=== PATIENT | male | born 1990 | race Caucasian/White ===

== ENCOUNTER 2017-08-24 08:44 | Inpatient (IN) | payer OTHER ==
[~2017-08-24] VITALS: Ht 190.5 cm; Wt 151.4 kg
[~2017-08-24 08:44] MED LIST: ASPIRIN E.C. 8181 MG PO; LEVAQUIN 5500 MG/TA1 PO; MAG-OX 400400 MG/TAB PO; MAGIC MOUTH PO; MOTRIN 200200 MG/TAB PO; NORCO 325 MG-51 TAB PO; SENNA8.6 MG PO; TOPROL XL 50MG50 MG PO; TYLENOL 500MG500 MG PO
[2017-10-13] VITALS (10 sets, daily range): BP systolic 126–147; BP diastolic 65–94; PULSE 78–99; TEMP 98.4
[2017-10-13] MEDS ORDERED: FIBER GUMMIES2.5 GM PO (10:53)
[2017-10-13] MEDS ORDERED: MULTI VITAMINS1 TAB PO (10:53)
[2017-10-13 11:14] LABS: BASO % 0.4 % (0.0-2.0); EOS # 0.1 (0.0-0.7); EOS % 1.7 % (0-4.0); GRAN # 5.2 (1.4-6.5); GRAN % 68.6 % (42.2-75.2); HEMATOCRIT 43.3 % (42.0-52.0); HEMOGLOBIN 14.3 g/dl (13.5-18.0); LYMPH # 1.5 (1.2-3.4); MEAN CELL VOLUME 90 fl (80.0-100.0); MEAN CORPUSCULAR HEMOGLOBIN 30 pg (27.0-31.0); MEAN CORPUSCULAR HGB CONC 33 g/dl (33.0-37.0); MEAN PLATELET VOLUME 9.9 fl (7.4-10.4); MONO # 0.7 (0.1-0.6); PLATELET COUNT 239 K/mm3 (130-400); RED BLOOD COUNT 4.81 M/mm3 (4.20-5.60); REDCELL DISTRIBUTION WIDTH-CV 14.2 % (11.5-14.5)
[2017-10-13 11:23] LABS: ALBUMIN 4.6 gm/dL (3.5-5.0); CALCIUM 9.8 mg/dL (8.4-10.2); CREATININE, serum 1.06 mg/dL (0.66-1.25); POTASSIUM 4.1 mmol/L (3.4-5.0); TOTAL PROTEIN 7.9 gm/dL (6.4-8.2)
[2017-10-13 18:27] LABS: HEMATOCRIT 44.1 % (42.0-52.0); HEMOGLOBIN 14.2 g/dl (13.5-18.0)
[2017-10-13 18:36] LABS: CALCIUM 9.4 mg/dL (8.4-10.2); CREATININE, serum 1.24 mg/dL (0.66-1.25); POTASSIUM 4.7 mmol/L (3.4-5.0)
[2017-10-14 04:04] VITALS: BP 127/66; PULSE 71; TEMP 98.2
[2017-10-14 07:44] VITALS: BP 157/97; PULSE 71; TEMP 97.5
[2017-10-14 11:30] VITALS: BP 110/71; PULSE 94; TEMP 98.4
[2017-10-14 15:20] VITALS: BP 120/69; PULSE 88; TEMP 99.9
[2017-10-14 19:55] VITALS: BP 140/64; PULSE 73; TEMP 97.9
[2017-10-14 23:41] VITALS: BP 125/73; PULSE 74; TEMP 98.1
[2017-10-15 04:41] VITALS: BP 104/59; PULSE 70; TEMP 97.5
[2017-10-15 07:32] LABS: HEMOGLOBIN 11.9 g/dl (13.5-18.0)
[2017-10-15 07:40] VITALS: BP 126/69; PULSE 62; TEMP 97.8
[2017-10-15 07:46] LABS: CREATININE, serum 1.01 mg/dL (0.66-1.25); POTASSIUM 3.9 mmol/L (3.4-5.0)
[2017-10-15 11:43] VITALS: BP 134/70; PULSE 72; TEMP 98.1
[2017-10-15 19:25] VITALS: BP 129/61; PULSE 77; TEMP 98.6
[2017-10-16 00:18] VITALS: BP 111/57; PULSE 76; TEMP 97.9
[2017-10-16 03:39] VITALS: BP 114/54; PULSE 80; TEMP 98
[2017-10-16 08:15] VITALS: BP 119/66; PULSE 94; TEMP 98.4
== END 2017-10-16 10:05 | disposition home or self-care (01) | DRG 354 ==
LOC: SURG 10-13 10:37 → INPTSU 10-13 10:37 → SURG 10-13 12:30
PROVIDERS: Surgery
PROC: 0WUF0JZ Supplement Abdominal Wall with Synthetic Substitute, Open Approach (ICD-10-PCS; principal; 2017-10-13 12:30)
DX: K43.2 Incisional hernia without obstruction or gangrene (principal); Z68.41 Body mass index [BMI] 40.0-44.9, adult; Z85.47 Personal history of malignant neoplasm of testis; E66.9 Obesity, unspecified
CPT/HCPCS: A4314; A9284; C1781; J0690; J1100; J1650; J2250; J2405; J2704; J2710; J7120

== ENCOUNTER → 2017-09-07 | Outpatient (CLI) | payer OTHER | LOC: COL.RAD 09:20 | DX: C62.02 Malignant neoplasm of undescended left testis (principal); K43.9 Ventral hernia without obstruction or gangrene; R19.09 Other intra-abdominal and pelvic swelling, mass and lump; Z98.890 Other specified postprocedural states | CPT/HCPCS: Q9967 ==